=== PATIENT | female | born 1975 | race African-American/Black ===

== ENCOUNTER 2023-02-05 10:02 | Emergency (ER) | payer SELFPAY ==
[~2023-02-05] VITALS: Ht 170.2 cm; Wt 77.1 kg
[2023-02-05 10:18] VITALS: BP 116/95; PULSE 66; RESP 18; TEMP 98.7; O2SAT 100
[2023-02-05 10:25] VITALS: BP 116/95; PULSE 66; RESP 18; TEMP 98.7; O2SAT 100
== END 2023-02-05 10:25 | disposition home or self-care (01) ==
LOC: MED 10:02
DX: H00.015 Hordeolum externum left lower eyelid (principal); Z79.899 Other long term (current) drug therapy
CPT/HCPCS: 99281

== ENCOUNTER 2023-10-02 17:10 | Emergency (ER) | payer SELFPAY ==
[~2023-10-02] VITALS: Ht 170.2 cm; Wt 82.8 kg
[2023-10-02 17:44] VITALS: BP 182/120; PULSE 67; RESP 20; TEMP 98.4; O2SAT 100
[2023-10-02 19:00] LABS: BASOPHILS # (AUTO) 0.1 K/uL (0.00-0.22); BASOPHILS % (AUTO) 1.4 % (0.0-2.0); EOSINOPHILS # (AUTO) 0.1 K/uL (0-0.4); EOSINOPHILS % (AUTO) 1.9 % (0.0-4.0); HEMATOCRIT 37.3 % (36-48); HEMOGLOBIN 12.7 g/dL (12.0-16.0); LYMPHOCYTES # (AUTO) 2.8 K/uL (2.5-16.5); LYMPHOCYTES % (AUTO) 43.6 % (20.5-51.1); MEAN CORPUSCULAR HEMOGLOBIN 31 pg (27-31); MEAN CORPUSCULAR HGB CONC 34 g/dL (33-37); MEAN CORPUSCULAR VOLUME 90.6 fL (80-94); MONOCYTES # (AUTO) 0.3 K/uL (0.8-1.0); MONOCYTES % (AUTO) 5.3 % (1.7-9.3); NEUTROPHILS % (AUTO) 47.8 % (42.2-75.2); PLATELET COUNT (AUTO) 247 K/uL (140-450); RED BLOOD CELL COUNT(AUTO) 4.12 MIL/uL (4.20-5.40); RED CELL DISTRIBUTION WIDTH 13.5 % (11.6-13.7); WHITE BLOOD COUNT (AUTO) 6.4 K/uL (4.8-10.8)
[2023-10-02 19:14] LABS: CARBON DIOXIDE 29.1 mmol/L (21-32); POTASSIUM 4.1 mmol/L (3.5-5.1)
[2023-10-02 19:22] LABS: ALANINE AMINOTRANSFERASE 21 U/L (12-78); ALBUMIN 3.6 g/dL (3.4-5.0); ALKALINE PHOSPHATASE 89 U/L (50-136); ASPARTATE AMINOTRANSFERASE 15 U/L (15-37); BILIRUBIN,DIRECT 0.1 mg/dL (0.0-0.3); TOTAL BILIRUBIN 0.3 mg/dL (0.0-1.0); TOTAL PROTEIN, SERUM 7.1 g/dL (6.4-8.2)
[2023-10-02 20:36] VITALS: BP 159/107; PULSE 63; RESP 14; O2SAT 100
== END 2023-10-02 20:45 | disposition home or self-care (01) ==
LOC: MED 17:10
DX: I10 Essential (primary) hypertension (principal); R07.9 Chest pain, unspecified; E78.5 Hyperlipidemia, unspecified; Z79.899 Other long term (current) drug therapy
CPT/HCPCS: 36415; 71045; 80048; 80076; 81025; 83880; 84484; 85025; 93005; 99285